=== PATIENT | female | born 1965 | race Hispanic/Latino ===

== ENCOUNTER 2018-08-21 10:46 | Day surgery (SDC) | payer BC ==
[2018-08-10 12:37] VITALS: BMI 38.5
[2018-08-21] MEDS ORDERED: Strong Iodine Topical Sol. 5%-10% ONE (13:11)
[2018-08-21] MEDS ORDERED: Acetic Acid 0.25% Irrig Sol ONE (13:11)
[2018-08-21] MEDS ORDERED: Midazolam 2 MG/2 ML VIAL ONE (13:19)
[2018-08-21] MEDS ORDERED: Propofol 10 mg/ml Inj (20 ML) ONE (13:19)
[2018-08-21] MEDS ORDERED: Lactated Ringer's 1,000 ML IV SCH (14:00)
[2018-08-21 14:39] VITALS: RESP 18
[2018-08-21 15:09] VITALS: TEMP 97.9
[2018-08-21 15:23] VITALS: BP 142/87; PULSE 78; O2SAT 98
--- NOTE | 2018-08-21 18:18 | OP ---
PROCEDURE DATE: 08/21/2018 PREOPERATIVE DIAGNOSIS: Large 4 x 5 cm cervical mass. POSTOPERATIVE DIAGNOSIS: Large 4 x 5 cm cervical mass. PROCEDURE PERFORMED: Excision of cervical mass. SURGEON: Joshua Borges MD. ANESTHESIA: General LMA. ESTIMATED BLOOD LOSS: Minimal. DESCRIPTION OF PROCEDURE: After informed consent was obtained and signed by the patient, the patient was brought into operating room. Propofol anesthesia was initiated. The patient was prepped and draped in the usual sterile fashion. Examination under anesthesia revealed that the patient had had a previous supracervical hysterectomy with a large 4 x 5 cm polypoid-type mass coming off the cervical stump. The edge of the mass was visualized, grasped and cauterized off. Mass was then amputated off and sent to pathology for examination. The cervix was examined and no other masses were noted. Endocervical canal was slightly cauterized and then Monsel solution was applied. Hemostasis was rechecked and found to be hemostatic. The procedure was terminated at this point. The patient was awakened and sent to the recovery room in stable condition. Joshua Borges MD
--- NOTE | 2018-08-21 20:05 | CARD ---
APPROVED REPORT Date of service: 08/21/2018 EKG Measurement Heart [id number] <Conclusion> Normal sinus rhythm Normal ECG
== END 2018-08-21 16:00 | disposition home or self-care (01) ==
LOC: SDS 10:46
PROVIDERS: ATTEND Obstetrics & Gynecology Gynecology
DX: N84.1 Polyp of cervix uteri (principal)
CPT/HCPCS: 57500; 88307; 93005; J2001; J2250; J2405; J2704; J7120 ×2

== ENCOUNTER 2019-02-20 08:59 | Outpatient (CLI) | payer BC | END 2019-02-20 09:00 | disposition home or self-care (01) | LOC: RAD 08:59 | DX: N92.6 Irregular menstruation, unspecified (principal) ==